=== PATIENT | female | born 1990 | race African-American/Black ===

== ENCOUNTER 2016-04-14 08:13 | Emergency (ER) | payer SELFPAY ==
--- NOTE | 2016-04-14 09:33 | EDDOCDS ---
Nurse's Notes [facility] Name: Fatoumata Parikh Age: 25 yrs Sex: Female : 1990 Arrival Date: 04/14/2016 Time: 08:13 Bed I2 / M2 Private MD: Diagnosis: Conjunctivitis-bacterial, right eye;Acute upper respiratory infection, unspecified Presentation: 04/14 08:24 Presenting complaint: Patient states: states exudate in right eye and sore throat x 3 ml6 days. Risk factors: Stridor is not present. Drooling is not present. Shortness of breath is not present. Cellulitis is not present. Adult Sepsis Screening: The patient does not have new or worsening altered mentation. Patient's respiratory rate is less than 22. Systolic blood pressure is greater than 100. Patient has a qSOFA score of 0- Negative Sepsis Screen. Suicide/Homicide risk assessment- the patient denies having any suicidal and/or homicidal ideations and does not present with any other emotional, behavioral or mental health complaints. 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 Transition of care: patient was not received from another setting of care. 08:24 Acuity: SANTIAGO Level 4 ml6 08:24 Acuity: SANTIAGO Level 5 ml6 08:24 Method Of Arrival: Walkin/Carried/Asstd ml6 Triage Assessment: 08:28 General: Appears in no apparent distress, Behavior is appropriate for age, cooperative. ml6 Pain: Denies pain. HIV screening NA for this visit Offered previously. EENT: Throat is reddened with gag reflex present. Cardiovascular: No deficits noted. Respiratory: No deficits noted. 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 none - PMHx: none; - PSHx: none; - Social history: Smoking status: Patient states was never smoker of tobacco. No barriers to communication noted, Speaks appropriately for age. - : The pt / caregiver states he / she is not on anticoagulants. Home medication list is obtained from the patient. - Exposure Risk Screening:: None identified. Screenin:53 Screening information is obtained from the patient. Fall risk: No risks identified. jjr Assistance ADL's: requires no assistance with activities of daily living. Abuse/DV Screen: The patient / caregiver reports he/she is: not in a situation that causes fear, pain or injury. Nutritional screening: No deficits noted. Advance Directives: There is no active DNR order. home support is adequate. Assessment: 08:52 General: Appears in no apparent distress, well nourished, well groomed, Behavior is jjr appropriate for age. EENT: Throat is clear. EENT: Sclera/Cornea slight pink tinge to sclera of right eye, mild swelling in comparison to left eye. EENT: audible nasal congestion. Respiratory: Airway is patent Respiratory effort is even, unlabored, Respiratory pattern is regular. Derm: No deficits noted. 09:32 General: Appears in no apparent distress. Respiratory: No deficits noted. jjr Vital Signs: 08:27 BP 136 / 72; Pulse 61; Resp 16; Temp 98.3(O); Pulse Ox 98% on R/A; Weight 83.46 kg (R); ml6 Height 5 ft. 1 in. (154.94 cm) (R); Pain 0/10; 08:27 Body Mass Index 34.77 (83.46 kg, 154.94 cm) ml6 Vitals: 08:27 Log In Time: April 14, 2016 at 08:13. ml6 08:55 Strep Screen is obtained and tested: Negative, a GATSNEG culture is ordered in [facility] and sent. ED Course: 08:14 Patient visited by Nancy Hurtado. az 08:14 Patient moved to Waiting az 08:25 Triage Initiated ml6 08:28 Fadia Wright, RN is Primary Nurse. ml6 08:28 Patient moved to / M2 ml6 08:35 Carl Ni PA-C is PHCP. ar2 08:35 Laura Sen MD is Attending Physician. ar2 08:35 Patient visited by Carl Ni PA-C. ar2 08:49 [facility] [place] Agreement was scanned into [employer] and attached to record. jp5 08:53 Patient visited by Fadia Wright RN. jjr 08:53 The patient / caregiver is instructed regarding the plan of care and ED course. jjr 09:23 [facility] is Referral Physician. ar2 09:32 No IV's were initiated during this patient's visit. No procedures done that require jjr assistance. Order Results: There are currently no results for this order. Outcome: 09:24 Discharge ordered by Provider. ar2 09:32 Discharge Assessment: patient administered narcotics - no. The following High Risk jjr Discharge criteria are identified: None. Discharged to home ambulatory, with friend. Condition: stable. Discharge instructions given to patient, Instructed on discharge instructions, follow up and referral plans. medication usage, Demonstrated understanding of instructions, medications, Prescriptions given X 1, Work note provided to patient. No special radiology studies were completed. Property sent home with patient. 09:33 Patient left the ED. jjr Signatures: Fadia Wright RN RN jjr Carl Ni, PA-C PA-Lor ar2 Irvin Bennett RN RN ml6 Mauro Chopra 5 Nancy Hurtado DAMIÁN
--- NOTE | 2016-04-14 09:33 | EDDOCDS ---
Physician Documentation [facility] Name: Fatoumata Parikh Age: 25 yrs Sex: Female : 1990 Arrival Date: 04/14/2016 Time: 08:13 Bed I2 / M2 Private MD: Disposition: 04/14/16 09:24 Discharged to Home/Self Care. Impression: Conjunctivitis - bacterial, right eye, Acute upper respiratory infection, unspecified. - Condition is Stable. - Discharge Instructions: Bacterial Conjunctivitis, Upper Respiratory Infection, Adult. - Prescriptions for ciprofloxacin HCl 0.3 % Ophthalmic drops - instill 1 drop by OPHTHALMIC route every 4 hours for 7 days right eye; 1 bottle. - Medication Reconciliation, Work Release Form - 1 day, Local Pharmacy Hours form. - Follow up: [facility]; When: Call to arrange an appointment; Reason: Recheck today's complaints, To establish care. Follow up: Private Physician; When: Call to arrange an appointment; Reason: Recheck today's complaints. - Problem is new. - Symptoms are unchanged. Historical: - Allergies: no known allergies; - Home Meds: 1. none - PMHx: none; - PSHx: none; - Social history: Smoking status: Patient states was never smoker of tobacco. No barriers to communication noted, Speaks appropriately for age. - : The pt / caregiver states he / she is not on anticoagulants. Home medication list is obtained from the patient. - Exposure Risk Screening:: None identified. 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 1 in. (154.94 cm) (R); Pain 0/10; 08:27 Body Mass Index 34.77 (83.46 kg, 154.94 cm) ml6 MDM: 08:43 Strep Screen, Nursing ordered. ar2 08:49 [facility] Payment Agreement was scanned into [employer] and attached to record. jp5 08:49 Financial registration complete. jp5 08:56 GATS (NEGATIVE STREP SCREEN) Ordered. EDMS Signatures: Dispatcher [employer] EDMS Fadia Wright RN RN jjr Carl Ni PA-C PALali ar2 Irvin Bennett, RN RN ml6 Mauro Chopra jp5 The chart was reviewed and I authenticate all verbal orders and agree with the evaluation and treatment provided.Attachments: 08:49 [facility] Payment Agreement jp5 MTDD
--- NOTE | 2016-04-16 10:35 | EDDOCDS ---
Physician Documentation [facility] Name: Fatoumata Parikh Age: 25 yrs Sex: Female : 1990 Arrival Date: 04/14/2016 Time: 08:13 Bed I2 / M2 Private MD: Disposition: 04/14/16 09:24 Discharged to Home/Self Care. Impression: Conjunctivitis - bacterial, right eye, Acute upper respiratory infection, unspecified. - Condition is Stable. - Discharge Instructions: Bacterial Conjunctivitis, Upper Respiratory Infection, Adult. - Prescriptions for ciprofloxacin HCl 0.3 % Ophthalmic drops - instill 1 drop by OPHTHALMIC route every 4 hours for 7 days right eye; 1 bottle. - Medication Reconciliation, Work Release Form - 1 day, Local Pharmacy Hours form. - Follow up: [facility]; When: Call to arrange an appointment; Reason: Recheck today's complaints, To establish care. Follow up: Private Physician; When: Call to arrange an appointment; Reason: Recheck today's complaints. - Problem is new. - Symptoms are unchanged. Historical: - Allergies: no known allergies; - Home Meds: 1. none - PMHx: none; - PSHx: none; - Social history: Smoking status: Patient states was never smoker of tobacco. No barriers to communication noted, Speaks appropriately for age. - : The pt / caregiver states he / she is not on anticoagulants. Home medication list is obtained from the patient. - Exposure Risk Screening:: None identified. 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 1 in. (154.94 cm) (R); Pain 0/10; 08:27 Body Mass Index 34.77 (83.46 kg, 154.94 cm) ml6 MDM: 08:43 Strep Screen, Nursing ordered. ar2 08:49 [facility] Payment Agreement was scanned into [employer] and attached to record. jp5 08:49 Financial registration complete. jp5 08:56 GATS (NEGATIVE STREP SCREEN) Ordered. EDMS 14:28 T-Sheet-- Draft Copy was scanned into [employer] and attached to record. gb Signatures: Dispatcher [employer] EDMS Kellie Anderson, Reg Reg gb Fadia Wright, RN RN jnolanr Carl Ni PA-C PA-C ar2 Lowe, Matthew, RN RN ml6 Mauro Chopra jp5 The chart was reviewed and I authenticate all verbal orders and agree with the evaluation and treatment provided.Attachments: 08:49 [facility] Payment Agreement jp5 14:28 T-Sheet-- Draft Copy gb Chart Complete MTDD
--- NOTE | 2016-04-16 10:35 | EDDOCDS ---
Physician Documentation [facility] Name: Fatoumata Parikh Age: 25 yrs Sex: Female : 1990 Arrival Date: 04/14/2016 Time: 08:13 Bed I2 / M2 Private MD: Disposition: 04/14/16 09:24 Discharged to Home/Self Care. Impression: Conjunctivitis - bacterial, right eye, Acute upper respiratory infection, unspecified. - Condition is Stable. - Discharge Instructions: Bacterial Conjunctivitis, Upper Respiratory Infection, Adult. - Prescriptions for ciprofloxacin HCl 0.3 % Ophthalmic drops - instill 1 drop by OPHTHALMIC route every 4 hours for 7 days right eye; 1 bottle. - Medication Reconciliation, Work Release Form - 1 day, Local Pharmacy Hours form. - Follow up: [facility]; When: Call to arrange an appointment; Reason: Recheck today's complaints, To establish care. Follow up: Private Physician; When: Call to arrange an appointment; Reason: Recheck today's complaints. - Problem is new. - Symptoms are unchanged. Historical: - Allergies: no known allergies; - Home Meds: 1. none - PMHx: none; - PSHx: none; - Social history: Smoking status: Patient states was never smoker of tobacco. No barriers to communication noted, Speaks appropriately for age. - : The pt / caregiver states he / she is not on anticoagulants. Home medication list is obtained from the patient. - Exposure Risk Screening:: None identified. 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 1 in. (154.94 cm) (R); Pain 0/10; 08:27 Body Mass Index 34.77 (83.46 kg, 154.94 cm) ml6 MDM: 08:43 Strep Screen, Nursing ordered. ar2 08:49 [facility] Payment Agreement was scanned into [employer] and attached to record. jp5 08:49 Financial registration complete. jp5 08:56 GATS (NEGATIVE STREP SCREEN) Ordered. EDMS 14:28 T-Sheet-- Draft Copy was scanned into [employer] and attached to record. gb Signatures: Dispatcher [employer] EDMS Kellie Anderson, Reg Reg gb Fadia Wright, RN RN jnolanr Carl Ni PA-C PA-C ar2 Lowe, Matthew, RN RN ml6 Mauro Chopar jp5 The chart was reviewed and I authenticate all verbal orders and agree with the evaluation and treatment provided.Attachments: 08:49 [facility] Payment Agreement jp5 14:28 T-Sheet-- Draft Copy gb Chart Complete MTDD
--- NOTE | 2016-04-16 10:35 | EDDOCDS ---
Nurse's Notes [facility] Name: Fatoumata Parikh Age: 25 yrs Sex: Female : 1990 Arrival Date: 04/14/2016 Time: 08:13 Bed I2 / M2 Private MD: Diagnosis: Conjunctivitis-bacterial, right eye;Acute upper respiratory infection, unspecified Presentation: 04/14 08:24 Presenting complaint: Patient states: states exudate in right eye and sore throat x 3 ml6 days. Risk factors: Stridor is not present. Drooling is not present. Shortness of breath is not present. Cellulitis is not present. Adult Sepsis Screening: The patient does not have new or worsening altered mentation. Patient's respiratory rate is less than 22. Systolic blood pressure is greater than 100. Patient has a qSOFA score of 0- Negative Sepsis Screen. Suicide/Homicide risk assessment- the patient denies having any suicidal and/or homicidal ideations and does not present with any other emotional, behavioral or mental health complaints. 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 Transition of care: patient was not received from another setting of care. 08:24 Acuity: SANTIAGO Level 4 ml6 08:24 Acuity: SANTIAGO Level 5 ml6 08:24 Method Of Arrival: Walkin/Carried/Asstd ml6 Triage Assessment: 08:28 General: Appears in no apparent distress, Behavior is appropriate for age, cooperative. ml6 Pain: Denies pain. HIV screening NA for this visit Offered previously. EENT: Throat is reddened with gag reflex present. Cardiovascular: No deficits noted. Respiratory: No deficits noted. 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 none - PMHx: none; - PSHx: none; - Social history: Smoking status: Patient states was never smoker of tobacco. No barriers to communication noted, Speaks appropriately for age. - : The pt / caregiver states he / she is not on anticoagulants. Home medication list is obtained from the patient. - Exposure Risk Screening:: None identified. Screenin:53 Screening information is obtained from the patient. Fall risk: No risks identified. jjr Assistance ADL's: requires no assistance with activities of daily living. Abuse/DV Screen: The patient / caregiver reports he/she is: not in a situation that causes fear, pain or injury. Nutritional screening: No deficits noted. Advance Directives: There is no active DNR order. home support is adequate. Assessment: 08:52 General: Appears in no apparent distress, well nourished, well groomed, Behavior is jjr appropriate for age. EENT: Throat is clear. EENT: Sclera/Cornea slight pink tinge to sclera of right eye, mild swelling in comparison to left eye. EENT: audible nasal congestion. Respiratory: Airway is patent Respiratory effort is even, unlabored, Respiratory pattern is regular. Derm: No deficits noted. 09:32 General: Appears in no apparent distress. Respiratory: No deficits noted. jjr Vital Signs: 08:27 BP 136 / 72; Pulse 61; Resp 16; Temp 98.3(O); Pulse Ox 98% on R/A; Weight 83.46 kg (R); ml6 Height 5 ft. 1 in. (154.94 cm) (R); Pain 0/10; 08:27 Body Mass Index 34.77 (83.46 kg, 154.94 cm) ml6 Vitals: 08:27 Log In Time: April 14, 2016 at 08:13. ml6 08:55 Strep Screen is obtained and tested: Negative, a GATSNEG culture is ordered in [facility] and sent. ED Course: 08:14 Patient visited by Nancy Hurtado. az 08:14 Patient moved to Waiting az 08:25 Triage Initiated ml6 08:28 Fadia Wright, RN is Primary Nurse. ml6 08:28 Patient moved to / M2 ml6 08:35 Carl Ni PA-C is PHCP. ar2 08:35 Laura Sen MD is Attending Physician. ar2 08:35 Patient visited by Carl Ni PA-C. ar2 08:49 [facility] Payment Agreement was scanned into [employer] and attached to record. jp5 08:53 Patient visited by Fadia Wright RN. jjr 08:53 The patient / caregiver is instructed regarding the plan of care and ED course. jjr 09:23 [facility] is Referral Physician. ar2 09:32 No IV's were initiated during this patient's visit. No procedures done that require jjr assistance. 14:28 T-Sheet-- Draft Copy was scanned into [employer] and attached to record. gb Order Results: Lab Order: GATS (NEGATIVE STREP SCREEN); SPEC'M 04/14/16 08:47 Test: GATS CULTURE (NEG STREP SCR); Value: GATS RESULT NEGATIVE FOR STREP PYOGENES (GROUP A); Status: F Test: GATS CULTURE (NEG STREP SCR); Value: <EXTERNAL COMMENT eCWMed> FULL REPORT IN LAB NOTES (eCW and [facility]ent).; Status: F Outcome: 09:24 Discharge ordered by Provider. ar2 09:32 Discharge Assessment: patient administered narcotics - no. The following High Risk jjr Discharge criteria are identified: None. Discharged to home ambulatory, with friend. Condition: stable. Discharge instructions given to patient, Instructed on discharge instructions, follow up and referral plans. medication usage, Demonstrated understanding of instructions, medications, Prescriptions given X 1, Work note provided to patient. No special radiology studies were completed. Property sent home with patient. 09:33 Patient left the ED. jjr 04/15 07:22 Lab/X-ray follow up: Patient called and given one more day off due to swelling and kcs drainage from eye - note at Reg. Signatures: Sepideh French, RN RN kcs Kellie Anderson, Reg Reg gb Fadia Wright RN RN jjr Carl Ni, PA-Lor VERGARA ar2 Irvin Bennett RN RN Mauro Basilio 5 Nancy Hurtado Chart Complete MTDD
== END 2016-04-14 09:33 | disposition home or self-care (01) ==
LOC: M ED 08:13
DX: J06.9 Acute upper respiratory infection, unspecified (principal); H10.89 Other conjunctivitis

== ENCOUNTER 2016-07-12 08:50 | Emergency (ER) | payer SELFPAY ==
[~2016-07-12] VITALS: Ht 154.9 cm; Wt 83.0 kg
[2016-07-12 09:01] VITALS: BP 123/71
[2016-07-12] MEDS ORDERED: TYLE325T5 PO (10:34)
[2016-07-12] MEDS ORDERED: IBUP80TA PO (10:34)
--- NOTE | 2016-07-13 07:08 | REP ---
LEFT KNEE: HISTORY: Pain after trauma. COMPARISON: None. FINDINGS: The compartments are symmetric and relatively well maintained. There is no acute fracture or destructive osseous lesion. Signed by Delonte Tavarez DO 07/13/2016 09:54 A
== END 2016-07-12 10:49 | disposition home or self-care (01) ==
LOC: M ED 09:54
DX: S83.412A Sprain of medial collateral ligament of left knee, initial encounter (principal); W19.XXXA Unspecified fall, initial encounter; Y92.89 Other specified places as the place of occurrence of the external cause; Y93.89 Activity, other specified; Y99.8 Other external cause status